=== PATIENT | female | born 1995 ===

== ENCOUNTER 2020-12-26 11:45 | Emergency (ER) | payer BC ==
--- NOTE | 2020-12-26 12:07 | EDM.PDOC ---
ED HPI GENERAL MEDICAL PROBLEM - General Chief Complaint: Respiratory Problem Stated Complaint: SOB/DIFFICULTY SWALLOWING Time Seen by Provider: 12/26/20 11:54 Source of Information: Reports: Patient History Limitations: Reports: No Limitations - History of Present Illness INITIAL COMMENTS - FREE TEXT/NARRATIVE: Patient is a 25-year-old female who presents today for possible food bolus. States for the past 2 weeks she has had a sensation that whenever she swallows something stuck in her throat. She has been to [place] and other facilities where they have done ultrasounds of her abdomen and CAT scans and thought she may have had GERD but not investigated any food boluses. She was told she had gallstones but her abdomen is not bothering her today. She states she can eat and drink but it takes a large amount of water to get the food down when she does eat. Denies any difficulty breathing. She has no other complaints. Throat Pain Score (Numeric/FACES): 8 - Related Data Allergies Allergy/AdvReac Type Severity Reaction Status Date / Time Sulfa (Sulfonamide Allergy Other Verified 12/26/20 11:49 Antibiotics) hydrocodone AdvReac Nausea Verified 04/22/20 08:[address] [facility] Home Meds: Home Meds . [No Known Home Meds] 12/26/20 [History] Past Medical History HEENT History: Reports: Glaucoma Gastrointestinal History: Reports: GERD FREIGHT COORDINATOR History: Reports: Endometriosis, Other FREIGHT COORDINATOR History: invetro - Infectious Disease History Infectious Disease History: Reports: None - Past Surgical History HEENT Surgical History: Reports: Oral Surgery, Tonsillectomy GI Surgical History: Reports: Colonoscopy Female Surgical History: Reports: Other (See Below) Other Female Surgeries/Procedures: ablation of endometriosis (2016), laser ablation of endometriosis (2014) Social & Family History - Family History Family Medical History: No Pertinent Family History - Tobacco Use Tobacco Use Status *Q: Never Tobacco User - Caffeine Use Caffeine Use: Reports: None - Recreational Drug Use Recreational Drug Use: Yes Drug Use in Last 12 Months: Yes Recreational Drug Type: Reports: Marijuana/Hashish Recreational Drug Use Frequency: Daily - Living Situation & Occupation Living situation: Reports: , with Spouse Occupation: Employed ED ROS GENERAL - Review of Systems Review Of Systems: See Below Constitutional: Reports: No Symptoms HEENT: Reports: No Symptoms Respiratory: Reports: No Symptoms Cardiovascular: Reports: Chest Pain Endocrine: Reports: No Symptoms GI/Abdominal: Reports: No Symptoms : Reports: No Symptoms Musculoskeletal: Reports: No Symptoms Skin: Reports: No Symptoms Neurological: Reports: No Symptoms Psychiatric: Reports: No Symptoms Hematologic/Lymphatic: Reports: No Symptoms Immunologic: Reports: No Symptoms ED EXAM, GENERAL - Physical Exam Exam: See Below Exam Limited By: No Limitations General Appearance: Alert, WD/WN, No Apparent Distress Throat/Mouth: Normal Inspection, Normal Oropharynx Neck: Normal Inspection, Supple Respiratory/Chest: No Respiratory Distress, Lungs Clear, Normal Breath Sounds Cardiovascular: Normal Peripheral Pulses, Regular Rate, Rhythm GI/Abdominal: Normal Bowel Sounds, Soft, Non-Tender Neurological: Alert, Oriented Course - Vital Signs Last Recorded V/S: Last Vital Signs Temp 97.3 F 12/26/20 11:50 Pulse 73 12/26/20 11:50 Resp 16 12/26/20 11:50 BP 117/91 H 12/26/20 11:50 Pulse Ox 97 12/26/20 11:50 - Orders/Labs/Meds Labs: Laboratory Tests 12/26/20 12/26/20 12/26/20 Range/Units 13:50 15:15 15:15 WBC 5.28 (4.0-11.0) K/uL RBC 4.14 L (4.30-5.90) M/uL Hgb 13.3 (12.0-16.0) g/dL Hct 39.5 (36.0-46.0) % MCV 95.4 (80.0-98.0) fL MCH 32.1 H (27.0-32.0) pg MCHC 33.7 (31.0-37.0) g/dL RDW Std Deviation 43.6 (28.0-62.0) fl RDW Coeff of Francisco 13 (11.0-15.0) % Plt Count 179 (150-400) K/uL MPV 11.00 (7.40-12.00) fL Neut % (Auto) 54.4 (48.0-80.0) % Lymph % (Auto) 38.6 (16.0-40.0) % Mccormick % (Auto) 6.4 (0.0-15.0) % Eos % (Auto) 0.0 (0.0-7.0) % Baso % (Auto) 0.6 (0.0-1.5) % Neut # (Auto) 2.9 (1.4-5.7) K/uL Lymph # (Auto) 2.0 (0.6-2.4) K/uL Mccormick # (Auto) 0.3 (0.0-0.8) K/uL Eos # (Auto) 0.0 (0.0-0.7) K/uL Baso # (Auto) 0.0 (0.0-0.1) K/uL Nucleated RBC % 0.0 /100WBC Nucleated RBCs # 0 K/uL Sodium 143 (136-145) mmol/L Potassium 4.2 (3.5-5.1) mmol/L Chloride 104 (98-107) mmol/L Carbon Dioxide 29.0 (21.0-32.0) mmol/L BUN 13 (7.0-18.0) mg/dL Creatinine 0.7 (0.6-1.0) mg/dL Est Cr Clr Drug Dosing 101.17 mL/min Estimated GFR (MDRD) > 60.0 ml/min Glucose 87 (74-106) mg/dL Calcium 9.3 (8.5-10.1) mg/dL Total Bilirubin 0.7 (0.2-1.0) mg/dL AST 17 (15-37) IU/L ALT 21 (14-63) IU/L Alkaline Phosphatase 54 (46-116) U/L Total Protein 7.5 (6.4-8.2) g/dL Albumin 4.3 (3.4-5.0) g/dL Globulin 3.2 (2.6-4.0) g/dL Albumin/Globulin Ratio 1.3 (0.9-1.6) Lipase 137 (73-393) U/L Urine HCG, Qual NEGATIVE (NEGATIVE) - Re-Assessments/Exams Free Text/Narrative Re-Assessment/Exam: 12/26/20 15:[address] is negative we also did patient LFTs she had elevated enzymes in the past these are negative. Patient will be discharged home follow-up with GI. Departure - Departure Time of Disposition: 15:57 Disposition: Home, Self-Care 01 Condition: Good Clinical Impression: Throat pain - Discharge Information *PRESCRIPTION DRUG MONITORING PROGRAM REVIEWED*: Not Applicable *COPY OF PRESCRIPTION DRUG MONITORING REPORT IN PATIENT FIONA: Not Applicable Instructions: Upper Respiratory Infection, Adult, [id number] Forms: ED Department Discharge Additional Instructions: The following information is given to patients seen in the emergency department who are being discharged to home. This information is to outline your options for follow-up care. We provide all patients seen in our emergency department with a follow-up referral. The need for follow-up, as well as the timing and circumstances, are variable depending upon the specifics of your emergency department visit. If you don't have a primary care physician on staff, we will provide you with a referral. We always advise you to contact your personal physician following an emergency department visit to inform them of the circumstance of the visit and for follow-up with them and/or the need for any referrals to a consulting specialist. The emergency department will also refer you to a specialist when appropriate. This referral assures that you have the opportunity for follow-up care with a specialist. All of these measure are taken in an effort to provide you with optimal care, which includes your follow-up. Under all circumstances we always encourage you to contact your private physician who remains a resource for coordinating your care. When calling for follow-up care, please make the office aware that this follow-up is from your recent emergency room visit. If for any reason you are refused follow-up, please contact the [facility] Emergency Department at and asked to speak to the emergency department charge nurse. Please follow up with your primary care physician. If you do not have a primary care physician, see below: [facility] [address] [place] [address] [id number] [facility] [address] [place] [id number] He was seen today for sensation of something stuck in your throat we did x-rays and also did a CAT scan did not show any foreign bodies. You scheduled see a GI specialist it technical specialist we recommend you continue appointment for further care if you have any other concerning signs or symptoms please return to the ED. Sepsis Event Note (ED) - Evaluation Sepsis Screening Result: No Definite Risk - Focused Exam Vital Signs: Vital Signs Temp Pulse Resp BP Pulse Ox 12/26/20 11:50 97.3 F 73 16 117/91 H 97 - Assessment/Plan Plan: Patient is a 25-year-old female who presents today for possible food bolus. Patient states she was seen outpatient before and was told she had gallstones was told us that the patient did refuse to have her gallbladder removed. Patient here looks well not jaundiced likely be down to pain with flight of some second her chest. Obtain x-rays and likely CT if needed.
--- NOTE | 2020-12-26 13:35 | CR ---
INDICATION: Possible fluid bolus. Discomfort at sternal notch. TECHNIQUE: Chest 2 views. COMPARISON: None. FINDINGS: No focal consolidation, pleural effusion, or pneumothorax. Normal heart size and pulmonary vascularity. The bones are unremarkable. Bilateral nipple piercings. No radiopaque foreign body identified. Probable mild gaseous distension of the esophagus on lateral view. IMPRESSION: 1. No acute cardiopulmonary findings. 2. Probable mild gaseous distention of the esophagus on lateral view. No radiopaque foreign body identified. Dictated by Jenni Fuentes MD @ 12/26/2020 1:33:[address] Jenni Fuentes @ Dec 26 2020 1:33PM
--- NOTE | 2020-12-26 13:40 | CR ---
Indication: Possible food bolus. Discomfort at sternal notch. Technique: Soft tissue neck, 2 lateral views. Comparison: None. Findings: On the 2nd image, there is a rounded lucency posterior to the trachea at the level of T1 which could represent air within the esophagus. No radiopaque foreign body is seen. The pharynx, larynx, and trachea are widely patent. No prevertebral soft tissue swelling. The cervical spine is unremarkable. Impression: Rounded lucency posterior to the trachea at the level of T1 could represent air within the esophagus. No radiopaque foreign body identified. Dictated by Jenni Fuentes MD @ 12/26/2020 1:37:[address] Jenni Fuentes @ Dec 26 2020 1:37PM
[2020-12-26 15:46] LABS: BLOOD UREA NITROGEN,BUN 13 mg/dL (7.0-18.0); CHLORIDE,CL 104 mmol/L (98-107); GLUCOSE RANDOM 87 mg/dL (74-106); LIPASE 137 U/L (73-393); POTASSIUM,K 4.2 mmol/L (3.5-5.1); SODIUM,NA 143 mmol/L (136-145)
--- NOTE | 2020-12-26 15:52 | CT ---
INDICATION: Possible foreign body. COMPARISON: None available TECHNIQUE: CT examination of the neck is performed using spiral technique without contrast administration. 2.5 mm thick axial sections were made along with coronal and sagittal sections. Please note that all CT scans at this facility use dose modulation, iterative reconstruction, and/or weight-based dosing when appropriate to reduce radiation dose to as low as reasonably achievable. FINDINGS: The airway structures are normal in appearance. The oral cavity, hypopharynx, cervical esophagus, and superior thoracic soft tissues are normal in appearance, with no sign of any ingested foreign body. There is no sign of cervical mass or adenopathy on today`s study. The salivary glands are normal in appearance. The visualized posterior fossa, mastoids, skull base, and orbits are normal in appearance. The paranasal sinuses are clear. The great vessels are unremarkable. The thyroid gland is normal in appearance. The visualized upper chest is clear. The visualized upper mediastinum is normal in appearance. The osseous structures are unremarkable. IMPRESSION: Normal CT examination of the neck without contrast. No sign of any ingested radiopaque foreign body in the aerodigestive system. Please note that all CT scans at this facility use dose modulation, iterative reconstruction, and/or weight-based dosing when appropriate to reduce radiation dose to as low as reasonably achievable. Dictated by Aamir Mckeon MD @ 12/26/2020 3:50:[address] Aamir Mckeon @ Dec 26 2020 3:50PM
[2020-12-26 16:07] VITALS: BP 93/65; PULSE 65
== END 2020-12-26 16:07 | disposition home or self-care (01) ==
LOC: MW.ED 11:45
DX: R07.0 Pain in throat (principal); Z88.5 Allergy status to narcotic agent; Z88.2 Allergy status to sulfonamides
CPT/HCPCS: 36415; 70360; 70360-26; 70490; 70490-26; 71046; 71046-26; 80053; 81025; 83690; 85025; 99284-25

== ENCOUNTER 2022-11-13 08:46 | Emergency (ER) | payer BC ==
[2022-11-13 10:49] VITALS: BP 101/57; PULSE 70
== END 2022-11-13 10:46 | disposition home or self-care (01) ==
LOC: MW.ED 08:46
DX: J02.9 Acute pharyngitis, unspecified (principal); Z88.2 Allergy status to sulfonamides; Z88.5 Allergy status to narcotic agent
CPT/HCPCS: 87070; 87880-QW; 99283; 99284